=== PATIENT | female | born 1990 | race Hispanic/Latino ===

== ENCOUNTER 2017-01-17 08:48 | Emergency (ER) | payer MEDICAID, OTHER ==
[~2017-01-17] VITALS: Ht 152.4 cm; Wt 81.8 kg
[2017-01-17 08:50] VITALS: BP 149/93; PULSE 83; RESP 16; O2SAT 99
--- NOTE | 2017-01-17 09:31 | ED.REPORT ---
HPI-Psychiatric Illness Date of Service Jan 17, 2017 ED Provider: Doc,Ed MD A 26 year old female with a history of self harm presents to the ED complaining of depression and thoughts of self harm. Since 2014, the patient has had 2 years of depression, and it is getting worse to the point that she is having trouble getting out of bed for the last week or so. She has had some periods of insomnia, but nothing that sounds like suleiman or hypomania. She has no PCP and has never been diagnosed with depression. She is looking for outpatient help and does not think that she needs to be in the hospital. Nursing Notes Stated Complaint: DEPRESSION Chief Complaint: Psychiatric Complaint Nursing Notes Reviewed: Yes Allergies: Coded Allergies: No Known Allergies (Unverified , 01/17/17) Scheduled Citalopram (Citalopram) 20 Mg Tablet 20 MG PO DAILY General Time Seen by MD: 09:31 Chief Complaint Depressed, Other Hx Obtained From: Patient Arrived By: Walk-in Onset Occurred: Onset unknown Symptom Duration: Intermittent Recent Healthcare: No recent doctor visit Similar Sx Previous: No Risk-Psychiatric Illness Suicide Risk Stratification RF Statements: Risk factors reviewed Past Medical History Past Medical History She does not have a regular PCP. denies current medication use. Denies any allergies. Denies high cholesterol. Never had medocations for depression in the past. Patient had sex approximatley 1 month ago. Patient is not on [employer] control. Denies: Diabetes mellitus, Hypertension Past Surgical History None reproted. Smoking History Never Smoker Social History No recreational drugs. Does not live with parents. Review of Systems Review of Systems Note: Self harm ideation. Psychiatric: Reports: Depression, Denies: Suicidal ideation Complete sys rev & neg: except as marked. Female: Denies: Physical Exam Initial Vital Signs Vital Signs (First) Date Time Temp Pulse Resp B/P Pulse Ox O2 Delivery O2 Flow Rate FiO2 01/17/17 08:50 36.4 83 16 149/93 99 Room Air Initial VS: Reviewed Head / Eyes: Atraumatic, Normocephalic, PERRL Neck: Supple, Non-tender, Full range of motion Respiratory: Breath sounds normal, Clear to auscultation, No respiratory distress Cardiovascular: Regular rate & rhythm, Heart sounds normal, Intact distal pulses Skin: Warm (Well healed scar to the left forearm from previous cutting.), Dry General/Constitutional: Awake, Alert Neurologic: Oriented X3, Speech NL Abnormal Mood/Affect: Positive: Flat affect Self harm ideations. Patient describes a plan to hurt themselves by cutting but denies thinking about killing themselves, having poor eye contact when they say this. Upper Extremity / MS: No swelling, No edema Wrist / Hand: No swelling, No edema Lower Extremity / Pelvis / MS: No swelling, No edema Interpretation & Diagnostics Lab Results Interpretation Test 01/17/17 10:48 Hold Urine Received (Received) Re-Eval/Medical Decision Med Decision/Clinical Course Spoke with her social problems specialist. Will be seen by Tj next week for both primary and psychiatric care. Discussed starting antidepressants, we will start with an SSRI Celexa at 20 mg. Review need to follow up with primary care and expected results from Celexa taking 2-4 weeks before noticing much. Source of Hx: Old records Re-Evaluation/Progress : Time of Eval: 11:02 Re-Evaluation/Progress Note: Rechecked patient, explained diagnosis, and plan for discharge. Patient understands and agrees with the plan. Counseled Regarding: Diagnosis, Need for follow-up, When/why to return to ED Discharge & Departure Impression: Primary Impression: Depression )( Condition at Discharge: No danger to self, No danger to others, No suicidal ideation Disposition: Home Discharge Condition All VS Reviewed: Yes Condition: Improved Patient Instructions: Major Depression (GEN) Follow up Friday with Luis They can help with both primary care and mental health. Please call Friday to schedule appointment. We are doing an access request with your insurance and they may call you first with an apt time. I am going to suggest that you start an antidepressant, citalopram (also called celexa). It is in the SSRI category. It can sometimes make you a bit dizzy or nauseated for the first day or 2. Please bear with this. You may find that it makes you feel like you had an extra cup of coffee, so take it in the morning. Please take the pills in with you when you when you go in to [facility]. Make sure they know all that you are taking If you feel that you are getting worse, you are thinking of hurting or killing yourself or just don't feel safe, please return to the ER. The celexa/citalopram can be filled at [facility] for $4 if you would like. Referrals: [facility] (PCP) Mary Attestation Portions of this note were transcribed by Almas Lynn. I, Dr. Preciado personally performed the history, physical exam and medical decision-making; I reviewed and confirmed the accuracy of the information in the transcribed note. Signed by: Mary Cota, 01/17/2017 1109. copies to: Nancy Echeverria MD Jan 17, 2017 09:31 Almas Lynn Jan 17, 2017 09:39
[2017-01-17] MEDS ORDERED: CITA20TA11 PO (10:59)
== END 2017-01-17 11:19 | disposition home or self-care (01) ==
LOC: SED 08:48
DX: F32.9 Major depressive disorder, single episode, unspecified (principal)